=== PATIENT | female | born 1970 | race Caucasian/White ===

== ENCOUNTER 2017-01-14 22:11 | Emergency (ER) | payer OTHER ==
[~2017-01-14] VITALS: Ht 160 cm; Wt 115.4 kg
[~2017-01-14 22:11] MED LIST: ACETAMINOPHN-T1 EACH PO; ADVAIR HFA120 INHALA IH; ALBUTEROL SULF8.5 GM IH; ANAPROX DS550 M1 PO; ANTIPYRINE-BENZ15 ML BOTH EARS; ATARAX,VISTARIL25 MG PO; AZITHROMYCIN250 MG PO; B12 INJECTIONS SC; CEFDINIR300 MG PO; CEFUROXIME500 MG PO; CENTRUM SILVER1 EAC3 PO; CYANOCOBAL1000 MCG/2 IM; DIAZEPAM5 MG PO; DILAUDID2 MG PO; FLEXERIL10 MG PO; LEVOFLOXACIN500 MG PO; LEVOTHYROXINE100 MCG PO; LOVENOX40 MG/0.4 SC; MOTRIN600 MG PO; MOTRIN800 MG PO; MUCUS RELIEF600 MG PO; MULTIVITAMIN1 EAC2 PO; NAPROXEN500 MG PO; PERCOCET 5/31 TABLET PO; PREDNISONE10 M1 PO; PREDNISONE10 MG PO; PREDNISONE50 MG PO; PROAIR RESPICL90 MCG IH; ROBITUSSIN NIG118 ML PO; SERTRALINE HCL100 MG PO; SYNTHROID100 MCG PO; TESSALON PERLE100 MG PO; TRAMADOL HCL50 MG PO; ULTRAM50 MG PO; VALIUM5 MG PO; VICODIN 5-3001 EACH PO; VITAMIN B-12 PO; VITAMIN D1000 UNIT PO; VITAMIN D31000 UNIT PO; WOMEN'S DAILY1 EAC3 PO; XARELTO20 MG PO; ZITHROMAX Z-PA250 MG PO; ZITHROMAX250 MG PO; ZOFRAN4 MG PO
[2017-01-14 22:42] LABS: ADD MIUA? NO; BILIRUBIN NEGATIVE; BLOOD NEGATIVE; COLOR COLORLESS ((YELLOW)); GLUCOSE (STRIP) NEGATIVE; KETONES NEGATIVE; LEUKOCYTES NEGATIVE; NITRITE NEGATIVE; PROTEIN (STRIP) NEGATIVE; SPECIFIC GRAVITY 1.004 (1.000-1.030); UCUL ADDED? NO; UROBILINOGEN 0.2 MG/DL (0.2-1.0)
[2017-01-14] MEDS ORDERED: TRAMADOL HCL50 MG PO (23:22)
[2017-01-14 23:49] VITALS: BP 142/86
[2017-01-16 13:56] LABS: CHLAMYDIA TRACHOMATIS NEGATIVE; NEISSERIA GONORRHOEAE NEGATIVE
== END 2017-01-14 23:51 | disposition home or self-care (01) ==
LOC: EME 22:11
PROVIDERS: Physician Assistant
DX: S31.41XA Laceration without foreign body of vagina and vulva, initial encounter (principal); N89.8 Other specified noninflammatory disorders of vagina; Z91.040 Latex allergy status; Z88.5 Allergy status to narcotic agent; Z91.018 Allergy to other foods; Z98.84 Bariatric surgery status; I10 Essential (primary) hypertension; Z87.442 Personal history of urinary calculi
CPT/HCPCS: 81003; 87210; 87252 90; 87254; 87491; 87591; 99281; 99284

== ENCOUNTER 2017-10-10 05:46 | Emergency (ER) | payer OTHER ==
[~2017-10-10] VITALS: Ht 160 cm; Wt 108.2 kg
[2017-10-10 07:06] LABS: BASOPHIL (%) 0.5 % (0-1); EOSINOPHIL (%) 0.3 % (0-5); HEMATOCRIT 34.3 % (36.0-46.0); HEMOGLOBIN 11.6 G/DL (11.9-15.5); IMMATURE GRANULOCYTE (%) 0.3 % (0.0-0.7); LYMPHOCYTE (%) 25.2 % (15-42); LYMPHOCYTE COUNT 1.9 K/uL (1.0-2.8); MCH 28.8 PG (29.0-34.0); MCHC 33.8 G/DL (30.0-36.0); MCV 85.1 FL (83-99); MONOCYTE (%) 11.3 % (3-12); MONOCYTE COUNT 0.9 K/uL (0-0.8); NEUTROPHIL (%) 62.4 % (45-76); NEUTROPHIL COUNT 4.8 K/uL (1.8-6.4); PLATELET COUNT 191 K/uL (156-360); RBC DIS.WIDTH-CV 13.4 % (11.8-14.6); RBC DIS.WIDTH-SD 41.9 % (39-53); RED BLOOD COUNT 4.03 M/uL (3.80-5.20); WHITE BLOOD COUNT 7.6 K/uL (4.1-10.2)
[2017-10-10 07:31] LABS: ALBUMIN 3.3 G/DL (3.2-4.8); CHLORIDE 111 MEQ/L (99-109); POTASSIUM 3.2 MEQ/L (3.7-5.4); SODIUM 143 MEQ/L (136-147); TOTAL BILIRUBIN 0.2 MG/DL (0.0-1.0)
[2017-10-10 07:37] LABS: ALKALINE PHOSPHATASE 100 IU/L (3-129); ALT (GPT) 11 IU/L (3-49); AST (GOT) 13 IU/L (2-34); CREATININE 0.7 MG/DL (0.6-1.3); GFR ESTIMATE (CALCULATED) > 59 mL/min/; GLUCOSE 86 mg/dL (70-99); TOTAL PROTEIN 6.1 G/DL (6.4-8.3); UREA NITROGEN (BUN) 18 mg/dL (9-23)
[2017-10-10] MEDS ORDERED: PROVENTIL HFA6.7 GM IH (09:54)
[2017-10-10] MEDS ORDERED: HYCODAN SYRUP480 ML PO (09:54)
[2017-10-10] MEDS ORDERED: ZOFRAN4 MG PO (09:54)
[2017-10-10] MEDS ORDERED: LEVAQUIN750 MG PO (09:54)
[2017-10-10 10:24] VITALS: BP 138/82
== END 2017-10-10 10:20 | disposition home or self-care (01) ==
LOC: EME 05:46
PROVIDERS: Emergency Medicine
DX: J20.9 Acute bronchitis, unspecified (principal); R11.0 Nausea; Z98.84 Bariatric surgery status; Z79.01 Long term (current) use of anticoagulants
CPT/HCPCS: 71020; 80053; 85025; 94640; 94644; 99281; 99285